=== PATIENT | male | born 1965 | race Caucasian/White ===

== ENCOUNTER 2020-01-12 12:52 | Emergency (ER) | payer MEDICARE, OTHER ==
[~2020-01-12] VITALS: Ht 170.2 cm; Wt 95.3 kg
[2020-01-12] MEDS ORDERED: cloNIDine HCL 0.1 MG TAB PO ONE (13:30)
[2020-01-12] MEDS ORDERED: SODIUM CHLORIDE 0.9% 1,000 ML IV ONE (13:49)
[2020-01-12] MEDS ORDERED: DexAMETHasone SOD PHOS 4 MG/1ML SDV INJ IV ONE (14:00)
[2020-01-12] MEDS ORDERED: ACYCLOVIR 400 MG TAB PO ONE (14:00)
[2020-01-12 14:53] LABS: Basophils # (auto) 0 10 ^3/uL (0-0.2); Basophils % (auto) 0.6 % (0.0-2.0); Eosinophils # (auto) 0.2 10 ^3/uL (0-0.8); Eosinophils % (auto) 2.8 % (0.0-7.0); Hematocrit 48.9 % (41.0-53.0); Hemoglobin 16.7 g/dL (13.5-17.5); Lymphocytes # (auto) 1.1 10 ^3/uL (0.4-5.4); Lymphocytes % (auto) 17.7 % (10.0-50.0); Mean Corpuscular Hemoglobin 33.3 pg (28.0-32.0); Mean Corpuscular Hgb Conc. 34.2 g/dL (32.0-36.0); Mean Corpuscular Volume 97.3 fL (80.0-100.0); Monocytes # (auto) 0.4 10 ^3/uL (0-1.3); Monocytes % (auto) 6.8 % (0.0-12.0); Neutrophils # (auto) 4.5 10 ^3/uL (1.6-8.6); Neutrophils % (auto) 72.1 % (37.0-80.0); Nucleated Red Blood Cells % 0.1 %; Platelet Count (auto) 261 10^3/uL (140-450); Red Blood Cells 5.02 10^6/uL (4.5-5.90); White Blood Cell 6.2 10^3/uL (4.4-10.8)
[2020-01-12 15:07] LABS: Albumin 3.9 g/dL (3.4-5.0); BUN/Creatinine Ratio 10.2; Calcium 9.5 mg/dL (8.5-10.1)
[2020-01-12 15:10] LABS: Bilirubin, Total 0.8 mg/dL (0.2-1.0); Total Protein 7.5 g/dL (6.4-8.2)
[2020-01-12 15:29] LABS: Potassium 2.8 mmol/L (3.5-5.1)
[2020-01-12] MEDS ORDERED: POTASSIUM EFFERVESENT TAB 25 MEQ PO ONE (17:00)
[2020-01-12 17:29] VITALS: BP 162/89
== END 2020-01-12 17:58 | disposition home or self-care (01) ==
LOC: ER 12:52
DX: G51.0 Bell's palsy (principal); G80.9 Cerebral palsy, unspecified; H91.3 Deaf nonspeaking, not elsewhere classified; I10 Essential (primary) hypertension; E87.6 Hypokalemia
CPT/HCPCS: 36415; 70450; 71046; 80053; 83735; 85025; 93005; 96374; 99285; J1100; J7030

== ENCOUNTER → 2020-03-25 | Outpatient (CLI) | payer MEDICARE, OTHER ==
[2020-03-25 12:18] LABS: Albumin 4.2 g/dL (3.4-5.0)
[2020-03-25 12:33] LABS: Basophils # (auto) 0.1 10 ^3/uL (0-0.2); Basophils % (auto) 1.1 % (0.0-2.0); Eosinophils # (auto) 0.3 10 ^3/uL (0-0.8); Eosinophils % (auto) 4.5 % (0.0-7.0); Hematocrit 51.2 % (41.0-53.0); Lymphocytes # (auto) 1.6 10 ^3/uL (0.4-5.4); Lymphocytes % (auto) 26.7 % (10.0-50.0); Mean Corpuscular Hemoglobin 32.6 pg (28.0-32.0); Mean Corpuscular Hgb Conc. 35.1 g/dL (32.0-36.0); Mean Corpuscular Volume 92.7 fL (80.0-100.0); Monocytes # (auto) 0.5 10 ^3/uL (0-1.3); Monocytes % (auto) 8.3 % (0.0-12.0); Neutrophils # (auto) 3.7 10 ^3/uL (1.6-8.6); Neutrophils % (auto) 59.4 % (37.0-80.0); Nucleated Red Blood Cells % 0.9 %; Platelet Count (auto) 258 10^3/uL (140-450); Red Blood Cells 5.52 10^6/uL (4.5-5.90); Red Cell Distribution Width 14.9 % (11.8-14.3); White Blood Cell 6.1 10^3/uL (4.4-10.8)
[2020-03-25 12:40] LABS: BUN/Creatinine Ratio 10.2; Bilirubin, Total 1.3 mg/dL (0.2-1.0); Calcium 9.6 mg/dL (8.5-10.1); Total Protein 7.6 g/dL (6.4-8.2)
[2020-03-25 13:50] LABS: Potassium 2.6 mmol/L (3.5-5.1)
[2020-03-25 16:05] LABS: Urine Bacteria NONE SEEN /hpf (None Seen); Urine Blood Negative /uL (Negative); Urine Hyaline Cast FEW /lpf (0 - 2); Urine Mucus FEW (None Seen); Urine Specific Gravity 1.022 (1.001-1.035); Urine WBC 2 /hpf (0 - 3)
== END | disposition home or self-care (01) ==
LOC: LAB 11:25
PROVIDERS: ATTEND Internal Medicine Nephrology
DX: I25.10 Atherosclerotic heart disease of native coronary artery without angina pectoris (principal); I10 Essential (primary) hypertension; E66.9 Obesity, unspecified; R73.9 Hyperglycemia, unspecified; Z79.899 Other long term (current) drug therapy
CPT/HCPCS: 36415; 80053; 80061; 81001; 83036; 84439; 84443; 85025

== ENCOUNTER → 2020-04-03 | Outpatient (CLI) | payer MEDICARE, OTHER ==
[2020-04-03 12:43] LABS: Calcium 9.2 mg/dL (8.5-10.1); Potassium 3.3 mmol/L (3.5-5.1)
[2020-04-03 12:45] LABS: BUN/Creatinine Ratio 9.7
== END | disposition home or self-care (01) ==
LOC: LAB 11:51
PROVIDERS: ATTEND Internal Medicine Nephrology
DX: E87.6 Hypokalemia (principal)
CPT/HCPCS: 36415; 80048

== ENCOUNTER → 2020-04-21 | Emergency (ER) | payer MEDICARE, OTHER ==
[~2020-04-21] VITALS: Ht 170.2 cm; Wt 97.5 kg
[~2020-04-21] MED LIST: ALBUTEROL SULF 2.5 MG/0.5ML(0.5%) NEB SOLN NEB ONE; IPRATROPIUM BROM 0.5 MG/2.5ML INH SOL NEB ONE; cloNIDine HCL 0.1 MG TAB PO ONE; hydrALAZINE HCL 10 MG TAB PO ONE; methylPREDNISolone SOD SUCC 125 MG/2 ML VL IM ONE
[2020-04-21 19:05] VITALS: BP 217/109
[2020-04-21 20:32] LABS: Basophils # (auto) 0.1 10 ^3/uL (0-0.2); Basophils % (auto) 0.8 % (0.0-2.0); Eosinophils # (auto) 0.6 10 ^3/uL (0-0.8); Eosinophils % (auto) 7.6 % (0.0-7.0); Hematocrit 48.4 % (41.0-53.0); Hemoglobin 16.7 g/dL (13.5-17.5); Lymphocytes # (auto) 1.1 10 ^3/uL (0.4-5.4); Mean Corpuscular Hemoglobin 32.7 pg (28.0-32.0); Mean Corpuscular Hgb Conc. 34.5 g/dL (32.0-36.0); Mean Corpuscular Volume 94.9 fL (80.0-100.0); Monocytes # (auto) 0.3 10 ^3/uL (0-1.3); Monocytes % (auto) 3.6 % (0.0-12.0); Neutrophils # (auto) 6.3 10 ^3/uL (1.6-8.6); Nucleated Red Blood Cells % 0.3 %; Platelet Count (auto) 210 10^3/uL (140-450); Red Cell Distribution Width 16.1 % (11.8-14.3); White Blood Cell 8.3 10^3/uL (4.4-10.8)
[2020-04-21 20:51] LABS: Alanine Aminotransferase 18 U/L (16-61); Albumin 3.8 g/dL (3.4-5.0); Anion Gap 5 (5-15); BUN/Creatinine Ratio 9.6; Blood Urea Nitrogen 9 mg/dL (7-18); Calcium 9.2 mg/dL (8.5-10.1); Carbon Dioxide 32 mmol/L (21-32); Chloride 102 mmol/L (98-107); GFR African American 108 mL/min; GFR Non-African American 90 mL/min; Glucose 115 mg/dL (74-106); Sodium 139 mmol/L (136-145)
[2020-04-21 20:54] LABS: Aspartate Aminotransferase 14 U/L (15-37); Potassium 3.5 mmol/L (3.5-5.1)
[2020-04-21 20:56] LABS: Alkaline Phosphatase 88 U/L (45-117); Bilirubin, Total 0.7 mg/dL (0.2-1.0); Total Protein 7.6 g/dL (6.4-8.2)
== END | disposition left against medical advice (07) ==
LOC: ER 17:55
DX: I16.1 Hypertensive emergency (principal); H60.92 Unspecified otitis externa, left ear
CPT/HCPCS: 36415; 71045; 80053; 84484; 85025; 93005; 94640; 99285; J2930; J7644